=== PATIENT | male | born 1945 | race Caucasian/White ===

== ENCOUNTER 2017-01-09 07:16 | Day surgery (SDC) | payer MEDICARE ==
[2017-01-06 18:48] VITALS: BMI 25.4
[2017-01-09] MEDS ORDERED: LEVOFLOXACIN 500 MG IVPB 100 ML IVPB ONE (07:41)
[2017-01-09] MEDS ORDERED: PROPOFOL 20 ML ONE (09:17)
[2017-01-09] MEDS ORDERED: LEVOFLOXACIN 500 MG PREMIX BAG IVPB ONE (09:36)
--- NOTE | 2017-01-09 09:53 | OP ---
Operative Note - Note: Operative Date: 01/09/17 Pre-Operative Diagnosis: stress urinary incontinence Operation: cystoscopy/transurethral injection of collagen Implants: 2 cc coaptite collagen Post-Operative Diagnosis: Same as Pre-op Surgeon: Dwight Garcia Anesthesia: General Operative Report Dictated: Yes
[2017-01-09] MEDS ORDERED: ONDANSETRON 4 MG/2 ML VIAL IVPUSH PRN (10:20)
[2017-01-09] MEDS ORDERED: oxyCODONE HCL 5 MG TABLET PO PRN ×2 (10:20)
[2017-01-09] MEDS ORDERED: LACTATED RINGERS SOLUTION 1,000 ML IV SCH (10:30)
--- NOTE | 2017-01-09 11:08 | OP ---
DATE OF OPERATION: 01/09/2017 PREOPERATIVE DIAGNOSIS: Stress urinary incontinence. POSTOPERATIVE DIAGNOSIS: Stress urinary incontinence. PROCEDURE: Cystoscopy and transurethral injection of collagen. SURGEON: Perry Toribio MD ANESTHESIA: General. DESCRIPTION OF PROCEDURE: The patient was brought in the operating room and placed in the supine position on the operating room table. General anesthesia was administered without complications. The patient was also given Levaquin 500 mg preoperatively for surgical prophylaxis. The patient subsequently was placed in the dorsal lithotomy position and prepped and draped in the usual sterile manner. The patient has a history of prostate cancer and is status post radiation therapy. The patient has had recurrent urethral stricture disease at the level of the bulbous urethra. Urethral sphincter mechanism was noted to have failure of coaptation secondary to scar tissue and radiation therapy. The patient has undergone the collagen injection at the area of the membranous urethra for correction of urinary incontinence. Cystoscopy was performed, and there was no evidence of neoplasm within the bladder. There is also no evidence of recurrent urethral stricture disease. Coaptite is injected into the area of the membranous urethra with excellent coaptation of the urethra. Then 2 mL of Coaptite is utilized. The patient was instructed that there is a risk of urinary retention or continued incontinence after the procedure. The patient understood these risks and benefits. The patient tolerated the procedure very well. No complications were noted. The disposition of the patient was to the recovery room. PERRY TORIBIO M.D. /[id number]
[2017-01-09 12:18] VITALS: BP 108/57; PULSE 67; TEMP 97.4
== END 2017-01-09 11:45 | disposition home or self-care (01) ==
LOC: JASU-SURG 07:16
PROVIDERS: ATTEND Urology
PROC: 3E0K8GC Introduction of Other Therapeutic Substance into Genitourinary Tract, Via Natural or Artificial Opening Endoscopic (ICD-10-PCS; principal; 2017-01-09 08:00)
DX: N39.3 Stress incontinence (female) (male) (principal); Z85.46 Personal history of malignant neoplasm of prostate
CPT/HCPCS: 94760

== ENCOUNTER 2017-03-01 13:22 | Emergency (ER) | payer MEDICARE, OTHER ==
[2017-03-01 13:27] VITALS: BP 135/61; PULSE 88; TEMP 98; BMI 25.4
[2017-03-01] MEDS ORDERED: KETOROLAC TROMETHAMINE 60 MG/2 ML VIAL IM ONE (14:50)
[2017-03-01] MEDS ORDERED: KETOROLAC TROMETHAMINE 60 MG/2 ML VIAL ONE (14:57)
--- NOTE | 2017-03-01 14:57 | PDOC ---
History of Present Illness - General Chief Complaint: Injury Stated Complaint: ELEVATED BP, SWOLLEN LT ANKLE Time Seen by Provider: 03/01/17 14:00 History Source: Patient, Family Exam Limitations: No Limitations - History of Present Illness Initial Comments: 03/01/17 15:02 This morning when he woke up and noted swelling, redness, and tenderness to the lateral aspect of his left ankle. Denies any recent trauma, strenuous activity or heavy lifting. States has had same type of swelling and erythema some months ago. And is uncertain as any associated exacerbate. Patient also denies history of gout or knowledge of same. Denies any recent large meal seafood, meats, chocolates, and is not a drinker. Has taken no medication for relief Occurred: reports: yesterday Severity: reports: mild, moderate Pain Location: reports: lower extremity (left ankle ) Modifying Factors: improves with: None Loss of Consciousness: no loss of consciousness Associated Symptoms (Fall): denies symptoms Past History - Travel Traveled outside of the country in the last 30 days: No Close contact w/someone who was outside of country & ill: No - Past Medical History Allergies/Adverse Reactions: Allergies Allergy/AdvReac Type Severity Reaction Status Date / Time No Known Allergies Allergy Verified 03/01/17 13:27 Home Medications: Ambulatory Orders Metformin HCl [Glucophage] 1,000 mg PO BID 05/14/13 Sitagliptin Phosphate [Januvia] 100 mg PO DAILY 05/14/13 Canagliflozin [Invokana] 300 mg PO DAILY 01/06/17 Naproxen [Naprosyn -] 500 mg PO BID #30 tablet 03/01/17 Anemia: No Asthma: No Cancer: Yes (PROSTATE.) Cardiac Disorders: No CVA: No COPD: No CHF: No Dementia: No Diabetes: Yes GI Disorders: Yes Disorders: Yes (BPH, GENITAL POLYPS REMOVED) HTN: No Hypercholesterolemia: No Liver Disease: No Seizures: No Thyroid Disease: No - Surgical History Abdominal Surgery: No Appendectomy: No Cardiac Surgery: No Cholecystectomy: No Lung Surgery: No Neurologic Surgery: No Orthopedic Surgery: No - Psycho/Social/Smoking Cessation Hx Anxiety: No Suicidal Ideation: No Smoking History: Never smoked Have you smoked in the past 12 months: No If you are a former smoker, when did you quit?: 1999 Hx Alcohol Use: No Drug/Substance Use Hx: No Substance Use Type: None Hx Substance Use Treatment: No Trauma Specific PMHX - Complaint Specific PMHX Back Injury: No Neck Injury: No Review of Systems - Review of Systems Able to Perform ROS?: Yes Is the patient limited Maltese proficient: Yes Constitutional: Yes: See HPI. No: Symptoms Reported, Chills, Fever, Loss of Appetite HEENTM: No: Symptoms Reported Respiratory: Yes: See HPI. No: Symptoms reported, Cough ABD/GI: No: Symptoms Reported Musculoskeletal: Yes: Symptoms Reported, See HPI, Joint Pain, Joint Swelling, Joint Stiffness (left ankle ) Integumentary: Yes: Symptoms Reported, See HPI Neurological: Yes: Symptoms reported All Other Systems: Reviewed and Negative *Physical Exam - Vital Signs Last Vital Signs Temp Pulse Resp BP Pulse Ox 98.0 F 88 18 135/61 98 03/01/17 13:24 03/01/17 13:24 03/01/17 13:24 03/01/17 13:24 03/01/17 13:24 - Physical Exam General Appearance: Yes: Appropriately Dressed, Apparent Distress HEENT: positive: BIPIN, Normal ENT Inspection, TMs Normal, Pharynx Normal, Tonsillar Erythema, Nasal Congestion, Rhinorrhea Neck: positive: Tender, Supple, Lymphadenopathy (R), Lymphadenopathy (L) Respiratory/Chest: positive: Lungs Clear, Normal Breath Sounds Gastrointestinal/Abdominal: positive: Soft. negative: Normal Bowel Sounds Extremity: positive: Normal Capillary Refill, Normal Range of Motion (but tender with ROM). negative: Delayed Capillary Refill, Swelling, Calf Tenderness Integumentary: positive: Normal Color, Warm, Erythema Neurologic: positive: fourth hand II-XII NML intact, Fully Oriented, Alert, Normal Mood/ Affect, Motor Strength 5/5 *DC/Admit/Observation/Transfer Diagnosis at time of Disposition: Gout flare Qualifiers: Gout site: ankle Gout etiology: unspecified cause Laterality: left Qualified Code(s): M10.9 - Gout, unspecified - Discharge Dispostion Disposition: HOME Condition at time of disposition: Stable Admit: No - Prescriptions Prescriptions: Naproxen [Naprosyn -] 500 mg PO BID #30 tablet - Referrals Referrals: Marcelino Vaughn MD [Primary Care Provider] - Xavier Laird MD [Staff Physician] - - Patient Instructions Printed Discharge Instructions: DI for Gout Additional Instructions: Rest, ice to area on and off for 15 minutes 4-6 times a day Avoid heavy lifting or exercise until pain and swelling is resolved or until further directed Keep area highly elevated to reduce swelling Use s Silvano wrap as directed Followup with orthopedist in one to 2 days if not improving, if significantly improved may wait one week for followup with orthopedist May use Naprosyn 1- 500 mg tablet every 8 hours as needed for swelling and pain - Post Discharge Activity
== END 2017-03-01 15:40 | disposition home or self-care (01) ==
LOC: JERFT 13:22
PROC: 3E0233Z Introduction of Anti-inflammatory into Muscle, Percutaneous Approach (ICD-10-PCS; principal; 2017-03-01)
DX: M10.9 Gout, unspecified (principal); Z85.46 Personal history of malignant neoplasm of prostate; N40.0 Benign prostatic hyperplasia without lower urinary tract symptoms; Z87.891 Personal history of nicotine dependence; E11.9 Type 2 diabetes mellitus without complications
CPT/HCPCS: 73610-TC-LT; 96372; 99281-25

== ENCOUNTER 2018-06-23 15:52 | Inpatient (IN) | payer MEDICARE, OTHER ==
--- NOTE | 2018-06-23 17:35 | PDOC ---
History of Present Illness - General Chief Complaint: Urinary Problem Stated Complaint: URINARY PROBLEM Time Seen by Provider: 06/23/18 17:06 History Source: Patient, Family (Son present for interview.), Old Records Exam Limitations: Language Barrier (Pt predominantly nepali speaking. Requested son provide translation.) - History of Present Illness Initial Comments: 72 y/o male presenting to [facility] ER via private auto complaining of hematuria with clots since approx. 10 am this morning (23 Jun 2018). States he believes he is urinating a normal amount but that it feels tight and like he is passing small balls. Additionally endorses small amount of pain in the right lower quadrant that does not radiate to his groin or to his back. Does not believe the pain is associated with voiding. Denies penile discharge. Pt endorses a history of prostate cancer and is s/p radiation therapy. Follows regularly with Dr. Garcia. Was told everything was normal during last clinical encounter. Per [facility], pt was diagnosed with stress urinary incontinence and is s/p cystoscopy and transurethral injection of collagen by Dr. Garcia on 01/09/2017. PCP: Dr. Vaughn Urologist: Dr. Garcia Social Hx: - EtOH: Social, rare - Tobacco: former smoker, last cigarette 8 years ago - Street drugs: denies Medical Hx: - Diabetes - Prostate Cancer s/p radiation therapy, 8-9 years ago - Stress Incontinence Surgical Hx: - Transurethral injection of collagen Past History - Past Medical History Allergies/Adverse Reactions: Allergies Allergy/AdvReac Type Severity Reaction Status Date / Time peach Allergy Intermediate Swelling Verified 06/23/18 16:01 No Known Drug Allergies Allergy Verified 06/23/18 16:01 Home Medications: Ambulatory Orders metFORMIN HCL [Glucophage] 1,000 mg PO BID 05/14/13 Canagliflozin [Invokana] 300 mg PO DAILY 01/06/17 Dulaglutide [Trulicity] 1.5 mg SQ WEEKLY 06/23/18 Glipizide 5 mg PO TID 06/23/18 Anemia: No Asthma: No Cancer: Yes (PROSTATE) Cardiac Disorders: No CVA: No COPD: No CHF: No Dementia: No Diabetes: Yes GI Disorders: Yes Disorders: Yes (BPH, GENITAL POLYPS REMOVED) HTN: No Hypercholesterolemia: No Liver Disease: No Seizures: No Thyroid Disease: No - Surgical History Abdominal Surgery: No Appendectomy: No Cardiac Surgery: No Cholecystectomy: Yes (YEARS AGO) Lung Surgery: No Neurologic Surgery: No Orthopedic Surgery: No - Suicide/Smoking/Psychosocial Hx Smoking History: Never smoked Have you smoked in the past 12 months: No If you are a former smoker, when did you quit?: 1999 Hx Alcohol Use: No Drug/Substance Use Hx: No Substance Use Type: None Hx Substance Use Treatment: No Review of Systems - Review of Systems Able to Perform ROS?: Yes Comments:: In addition to that documented in the HPI above, the additional ROS was obtained : Constitutional: Denies fevers or chills Eyes: Denies vision changes ENMT: Denies sore throat CV: Denies chest pain Resp: Denies SOB GI: Denies vomiting or diarrhea *Physical Exam - Vital Signs Last Vital Signs Temp Pulse Resp BP Pulse Ox 98.1 F 84 18 129/65 99 06/23/18 15:58 06/23/18 15:58 06/23/18 15:58 06/23/18 15:58 06/23/18 15:58 - Physical Exam Comments: Constitutional: Well-developed, well-nourished male in no acute distress or obvious discomfort. Found sitting upright on edge of hospital bed. . Alert and oriented x4. Answered all questions appropriately and completely. Speech was non -labored, non-pressured. HEENT: Normocephalic. No obvious external signs of trauma. Hearing grossly normal. No nasal discharge. Moist, pink mucosal membranes. Neck is supple. Cardiovascular: Regular rate and regular rhythm. No murmur, rubs, clicks, or gallops. Peripheral pulses: Radial pulses full. Respiratory: Breathing unlabored. Equal chest rise and fall. Clear to auscultation bilaterally. No stridor, no wheezing, no rhonchi. Gastrointestinal: abdomen is soft, non-tender, non-distended. Neuro: Alert and oriented. Moving all four extremities spontaneously. Skin: Sneads, warm, dry, and intact. No bruising, rashes, or other lesions. : No R or L CVA tenderness. Psych: Affect: appropriate. Mood: normal. ED Treatment Course - LABORATORY CBC & Chemistry Diagram: 06/23/18 17:40 06/23/18 17:40 - RADIOLOGY Radiograph Interpretation: Ultrasound of Bladder and Pelvis Hong Vale MD wrote on Jun 23, 2018 at 07:58 PM: Referring Physician: BISHOP LLANOS Patient Name: EMI JHAVERI THIS IS A PRELIMINARY REPORT FROM [facility] DATE OF SERVICE: 2018-06-23 19:10:15 IMAGES: 17 EXAM: PELVIC / BLADDER US HISTORY: Hematuria COMPARISON: None available. FINDINGS: Distended bladder with echogenic mobile debris, but no obvious mass. The prevoid volume of the urinary bladder is 1000 ml, and the patient was not able to void. THIS DOCUMENT HAS BEEN ELECTRONICALLY SIGNED Hong Vale MD 06/23/2018 19:57 EST Medical Decision Making - Medical Decision Making *Reviewed vital signs, nursing notes, and prior visit documentation (if available). 72 y/o male with hematuria with clots. H/o bladder instrumentation and prostate CA. Pt not on ASA or anticoagulants. Afebrile. Vitals unremarkable for hypotension or tachycardia. Physical exam unrevealing for signs of anemia. Urine sample at bedside appeared grossly hematuric with obvious clots. D/D includes hematuria and clots causing urinary stricture, bladder CA, prostate CA , cystitis, pyelonephritis. Will obtain CBC, BMP, PT/INR, and bladder U/S. Anticipate placing emanuel for CBI. Bladder U/S revealed 20:13 Telephone page sent to Dr. Garcia. 20:48 Second telephone page sent to Dr. Garcia. 21:[address] Garcia. Expressed concern for hemorrhagic cystitis. Requested the pt be start on antibiotics. 21:59 Microblog sent to [facility] for admission for hematuria, concerning for hemorrhagic cystitis. Ordered Ceftriaxone presumptively. UA positive for nitrite and trace leukocyte esterase. No pyuria. 06/24/18 00:42 In person consultation with resident Dr. Liz. Agrees to admit pt to med/surg on obs status for Dr. Jacobsen. *DC/Admit/Observation/Transfer Diagnosis at time of Disposition: Hematuria Qualifiers: Hematuria type: unspecified type Qualified Code(s): R31.9 - Hematuria, unspecified - Discharge Dispostion Condition at time of disposition: Good Decision to Admit order: Yes - Referrals Referrals: Marcelino Vaughn MD [Primary Care Provider] - - Patient Instructions - Post Discharge Activity
--- NOTE | 2018-06-23 18:44 | PDOC ---
Attending Attestation - Resident Resident Name: Héctor Alvarado - ED Attending Attestation I have performed the following: I have examined & evaluated the patient, The case was reviewed & discussed with the resident, I agree w/resident's findings & plan, Exceptions are as noted - HPI HPI: 06/23/18 18:38 The patient is a 72-year-old male with past medical history significant for DM ( well controlled), prostate CA, BPH, colon CA with radiation therapy and hx of hematuria presents to the emergency department with hematuria since 10:00 am today. The patient reports since this morning hes been passing bright red blood per urine thats accompanied by the passing of clots. He states his urine is mostly bright red. The patient states hes able to void without difficulty, but he has been passing clots thats the size of balls while urinating. The patient reports hematuria in the past about 7-8 months ago, denies passing clots during that time. The patient is s/p cystoscopy/transurethral injection of collagen (01/09/17) secondary to stress urinary incontinence. Denies dysuria , frequency or urgency to urinate, fever, chills, chest pain, shortness of breath, abdominal pain or changes in bowel habits. Denies the use of blood thinners or AC. Allergies: NKDA Social history: Former smoker, no alcohol or recreational drug use reported. Surgical history: cystoscopy/transurethral injection of collagen (01/09/[address] Garcia), right knee arthroscopy with PMM, PLM, debridement chondroplasty (05/23/[address] Waggoner), Cholecystectomy. PCP: Marcelino Sparks MD Urologist: Dr. Garcia. - Physicial Exam PE: 06/23/18 18:40 agree with resident exam - Medical Decision Making 06/23/18 18:21 72yo M presents to the ED with hematuria with clots. Vitals unremarkable. Exam with some suprapubic ttp. PT able to void, but mostly blood. Plan to obtain labs , US, and discuss case with Dr. Nice. 06/23/18 19:10 Labs, US, uro consult pending Case signed out to overnight attending for further mgmt and dispo
[2018-06-23 18:49] LABS: BASO % 1.2 % (0-2.0); EOS % 0.5 % (0-4.5); HEMATOCRIT 37.3 % (35.4-49); HEMOGLOBIN 12.7 GM/dL (11.7-16.9); LYMPH % 30.6 % (8-40); MCH 29.7 pg (25.7-33.7); MEAN CELL VOLUME 87.5 fl (80-96); MEAN PLT VOLUME 8.2 fl (7.5-11.1); MONO % 7.7 % (3.8-10.2); PLATELET COUNT 178 K/MM3 (134-434); RBC 4.26 M/mm3 (4.00-5.60); RDW 14.4 % (11.9-15.9); WHITE BLOOD COUNT 7.1 K/mm3 (4.0-10.0)
[2018-06-23 19:00] LABS: INR 1.03 (0.83-1.09); PROTHROMBIN TIME (PATIENT) 12.1 SEC (9.7-13.0)
[2018-06-23 19:07] LABS: ANION GAP 9 MMOL/L (8-16); BLOOD UREA NITROGEN 15 mg/dL (7-18); CALCIUM 8.5 mg/dL (8.5-10.1); CHLORIDE 98 mmol/L (98-107); CO2 27 mmol/L (21-32); CREATININE 0.9 mg/dL (0.55-1.3); GLUCOSE,RANDOM 299 mg/dL (74-106); POTASSIUM 4.7 mmol/L (3.5-5.1); SODIUM 134 mmol/L (136-145)
[2018-06-23] MEDS ORDERED: CEFTRIAXONE 1,000 MG in DEXTROSE 5%-WATER - 50 ML IVPB ONE (22:21)
[2018-06-23] MEDS ORDERED: CEFTRIAXONE 1 GM/50 ML BAG ONE (22:23)
[2018-06-23 22:44] LABS: URINE APPEARANCE Turbid; URINE BILIRUBIN 2+ (<2.0 mg/dL); URINE COLOR Red; URINE GLUCOSE (UA) 2+ (NEGATIVE); URINE KETONE Negative (NEGATIVE); URINE LEUK ESTERASE TRACE (NEGATIVE); URINE NITRITE Positive (NEGATIVE); URINE PROTEIN 3+ (NEGATIVE); URINE UROBILINOGEN 0.2 mg/dL (0.2-1.0)
[2018-06-23 22:51] LABS: URINE BACTERIA 1+ /hpf (NONE SEEN)
--- NOTE | 2018-06-24 01:54 | HP ---
CHIEF COMPLAINT: Hematuria PCP: Dr. Vaughn HISTORY OF PRESENT ILLNESS: Pt. is a citizen of [place] speaking male who presents with hematuria that began this morning. Pt. states that there he awoke early i nthe morning and was urinating as usual and then spontaneously around 10 am, he began passing red urine with clots. He denies any traumatic inciting incident. He denies eating beets, he denies taking Rifaximin. Pt. states that urination is not painful and is not more frequent than usual. Pt. denies any other complaints at this time including 10 point ROS ER course was notable for: (1)Labs (2)Bladder US (3)Urology Consult Recent Travel: No PAST MEDICAL HISTORY: NIDDM, Prostate Ca( s/p radiation therapy 2009), BPH, Hematuria PAST SURGICAL HISTORY: Cystoscopy/transurethral collagen injection (01/09/17)- Luiz Martin knee arthroscopy, partial medial and lateral menisecotomies ()-Dr. Waggoner CCEsperanza, Social History: Smoking:former occasional smoker(a few cigarettes/ day), quit 6-7 years ago Alcohol: Social Drinking Drugs: Denies Family History: Brother-Colon cancer (70), Mom-Diabetes (66) Allergies peach Allergy (Intermediate, Verified 06/23/18 16:01) Swelling No Known Drug Allergies Allergy (Verified 06/23/18 16:01) HOME MEDICATIONS: Home Medications Medication Instructions Recorded metFORMIN HCL [Glucophage] 1,000 mg PO BID 05/14/13 Canagliflozin [Invokana] 300 mg PO DAILY 01/06/17 Dulaglutide [Trulicity] 1.5 mg SQ WEEKLY 06/23/18 Glipizide 5 mg PO TID 06/23/18 REVIEW OF SYSTEMS CONSTITUTIONAL: Absent: fever, chills, diaphoresis, generalized weakness, malaise, loss of appetite, weight change HEENT: Absent: rhinorrhea, nasal congestion, throat pain, throat swelling, difficulty swallowing, mouth swelling, ear pain, eye pain, visual changes CARDIOVASCULAR: Absent: chest pain, syncope, palpitations, irregular heart rate, lightheadedness , peripheral edema RESPIRATORY: Absent: cough, shortness of breath, dyspnea with exertion, orthopnea, wheezing, stridor, hemoptysis GASTROINTESTINAL: Absent: abdominal pain, abdominal distension, nausea, vomiting, diarrhea, constipation, melena, hematochezia GENITOURINARY: Absent: dysuria, frequency, urgency, hesitancy, hematuria, flank pain, genital pain MUSCULOSKELETAL: Absent: myalgia, arthralgia, joint swelling, back pain, neck pain SKIN: Absent: rash, itching, pallor HEMATOLOGIC/IMMUNOLOGIC: Absent: easy bleeding, easy bruising, lymphadenopathy, frequent infections ENDOCRINE: Absent: unexplained weight gain, unexplained weight loss, heat intolerance, cold intolerance NEUROLOGIC: Absent: headache, focal weakness or paresthesias, dizziness, unsteady gait, seizure, mental status changes, bladder or bowel incontinence PSYCHIATRIC: Absent: anxiety, depression, suicidal or homicidal ideation, hallucinations. PHYSICAL EXAMINATION Vital Signs - 24 hr 06/23/18 15:58 Temperature 98.1 F Pulse Rate 84 Respiratory 18 Rate Blood Pressure 129/65 O2 Sat by Pulse 99 Oximetry (%) GENERAL: Awake, alert, and fully oriented, in no acute distress. HEAD: Normal with no signs of trauma. EYES: Pupils equal, round and reactive to light, sclera anicteric, conjunctiva clear. EARS, NOSE, THROAT: Ears normal, nares patent, oropharynx clear without exudates. Moist mucous membranes. LUNGS: Breath sounds equal, clear to auscultation bilaterally. No wheezes, and no crackles. No accessory muscle use. HEART: Regular rate and rhythm, normal S1 and S2 without murmur ABDOMEN: Soft, nontender, not distended, normoactive bowel sounds, no guarding, no rebound, no masses. No hepatomegaly or splenomegaly. MUSCULOSKELETAL: Normal range of motion at all joints. No bony deformities or tenderness. No CVA tenderness. UPPER EXTREMITIES: 2+ pulses, warm, well-perfused. No cyanosis. No clubbing. No peripheral edema. LOWER EXTREMITIES: 2+ pulses, warm, well-perfused. No calf tenderness. No peripheral edema. NEUROLOGICAL: Cranial nerves II-XII intact. Normal speech. Normal gait. PSYCHIATRIC: Cooperative. Good eye contact. Appropriate mood and affect. SKIN: Warm, dry, normal turgor, no rashes or lesions noted, normal capillary refill. Laboratory Results - last 24 hr 06/23/18 06/23/18 06/23/18 17:40 17:40 17:40 WBC 7.1 RBC 4.26 Hgb 12.7 Hct 37.3 MCV 87.5 MCH 29.7 MCHC 34.0 RDW 14.4 Plt Count 178 MPV 8.2 Absolute Neuts (auto) 4.2 Neutrophils % 60.0 Lymphocytes % 30.6 D Monocytes % 7.7 Eosinophils % 0.5 Basophils % 1.2 Nucleated RBC % 0 PT with INR INR Sodium 134 L Potassium 4.7 Chloride 98 Carbon Dioxide 27 Anion Gap 9 BUN 15 Creatinine 0.9 Creat Clearance w eGFR > 60 Random Glucose 299 H Calcium 8.5 Urine Color Urine Appearance Urine pH Ur Specific [place] Urine Protein Urine Glucose (UA) Urine Ketones Urine Blood Urine Nitrite Urine Bilirubin Urine Urobilinogen Ur Leukocyte Esterase Urine WBC (Auto) Urine RBC (Auto) Urine Bacteria Blood Type A POSITIVE Antibody Screen Negative 06/23/18 06/23/18 17:40 22:17 WBC RBC Hgb Hct MCV MCH MCHC RDW Plt Count MPV Absolute Neuts (auto) Neutrophils % Lymphocytes % Monocytes % Eosinophils % Basophils % Nucleated RBC % PT with INR 12.10 INR 1.03 Sodium Potassium Chloride Carbon Dioxide Anion Gap BUN Creatinine Creat Clearance w eGFR Random Glucose Calcium Urine Color Red Urine Appearance Turbid Urine pH 7.0 Ur Specific [place] 1.020 Urine Protein 3+ H Urine Glucose (UA) 2+ H Urine Ketones Negative Urine Blood 3+ H Urine Nitrite Positive Urine Bilirubin 2+ H Urine Urobilinogen 0.2 Ur Leukocyte Esterase Trace Urine WBC (Auto) 0-3 Urine RBC (Auto) >100 Urine Bacteria 1+ Blood Type Antibody Screen ASSESSMENT/PLAN: A 72 y.o. M w/ PMHx. of DM, Prostate Ca(received last dose of radiation therapy 8 years ago), and BPH presents to the ED with hematuria and passing clots. -Hematuria UA: 3+ positive for blood, RBC>100 Pt. endorses passing clots of blood that are worm like. s/p Prostate cancer and radiation therapy f/u consult with Dr. Dov Allen f/u official CT A/P reading to rule out Nephrolithiasis. Preliminary read is positive for bilater renal cysts, a small non-obstructing calcification on the right kidney, and bladder wall thickening vs. possible mass. F/u cystoscopy is recommended. monitor CBC with normal transfusion threshold of 7 -Hyperglycemia 2/2 DM2 B Anion gap is 9 therefore unlikely to be DKA, no ketones in the urine, BG lower than 600 and no neurological symptoms present therefore unlikely to be HHS ISS ACHS BGM ACHS -F/E/N IVF monitor electrolytes and replete as needed NPO for possible cystoscopy in AM -DVT Ppx. SCDs hold AC in light of ongoing hematuria Visit type - Emergency Visit Emergency Visit: Yes ED Registration Date: 06/24/18 Care time: The patient presented to the Emergency Department on the above date and was hospitalized for further evaluation of their emergent condition. - New Patient This patient is new to me today: Yes Date on this admission: 06/24/18 - Critical Care Critical Care patient: No
--- NOTE | 2018-06-24 02:12 | PN ---
Teaching Attending Note Name of Resident: Bright Espino ATTENDING PHYSICIAN STATEMENT I saw and evaluated the patient. I reviewed the resident's note and discussed the case with the resident. I agree with the resident's findings and plan as documented. SUBJECTIVE: Seen and examined; please refer to resident note for further documentation. He is a 72 y/o HM h/o prostate cancer, BPH, presenting to the ER with a CC of hematuria since 10AM the morning of the day of presentation. He has no other urinary sx including dysuria or frequency. He never had hematuria before. He is passing clots with this and was observed to do so at the hospital. Nothing makes these sx better or worse. He follows with Dr. Crook for urology who was consulted by the ER. Afebrile without a white count; UA is nondiscript for infection but shows blood, nitrite, etc but clinically doesn't appear infected. CT and bladder US done; thickened wall and recommendation to r/o bladder mass. Medicine was called for admission. Hemodynamics stable. 10 sys ROS done and negative aside from HPI PMH and PSH reviewed; as per chart. Would benefit from obtaining old records. Socially he denies any history of EtOH abuse. He is a former smoker who quit 7 years ago. FH asked and noncontributory OBJECTIVE: VS, labs, imaging reviewed NAD, AAO, resting comfortably in bed RRR s1/2 no mgr Lungs CTAB with sym exp NT ND +BS Bladder nondistended, making urine. Blood at urethral meatus CN2-12 wnl, no fnd Labs: CBC, BMP unremarkable. UA shows grossly bloody urine with nitrite + and only trace LE in the setting of asymptomatic individual with no fever or WBC count. Glucose elevated 250s. Imaging: Bladder Us reviewed; CT shows wall thickening with possible mass and blood in the bladder with the final report pending and recommended cystoscopy ASSESSMENT AND PLAN: Mr. Woo is a 72 y/o male presenting with hematuria; questionable bladder mass with wall thickening with borderline UTI but no fever and no WBC count. 1) Acute Hematuria -Dr. Crook consulted by ER; he will likely require cystoscopy. His H/H is stable. Ddx is broad but is of course concerning for malignancy. Prelim report reviewed of CT and radiology agrees; wall thickening with possible mass. -Obtain tissue sample inpt. vs. outpt. and will need close followup when the results are made available. -Monitor CBC 2) ?UTI -Was given ceftriaxone in ER for ?UTI. He is asymptomatic and without a white count or fever which argues against this; however he does have bladder wall thickening on his CT which could be seen with cystitis vs. issue #1. As he already recieved tx and culture is pending will monitor clinically. If he does spike any fevers or get a white count of course we will start treatment on this gentleman, but the bladder wall thickening and UA findings could be easily explained by possible malignancy as well and the clinical presentation does argue against a UTI. If he does require tx would have to tx for complicated UTI and likely could be done PO. 3) DM with hyperglycemia -He is documented as being on 4 home meds and has poor control as evidenced by his glucose. I believe that he needs to be evaluated for starting on long acting insulin as an outpatient given this information. Will confirm with pharmacy and check an A1c. -Hold PO medicatons, start SSI. 4) History of Prostate Cancer -Mention of colon cancer in the notes but patient denies. He is s/p radiation and the last tx was 8 years ago. 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
[2018-06-24 04:16] VITALS: BMI 27.1
[2018-06-24] MEDS: LACTATED RINGERS SOLUTION 1,000 ML/1,000 ML INFUS.BAG IV SCH (04:58)
[2018-06-24] MEDS: INSULIN SLIDING SCALE (NOVOLOG) 1 VIAL SQ SCH ×3 (06:33→17:36)
[2018-06-24 07:27] LABS: HEMATOCRIT 37.2 % (35.4-49); HEMOGLOBIN 12.3 GM/dL (11.7-16.9); MCHC 33.1 g/dl (32.0-35.9); MEAN CELL VOLUME 87.5 fl (80-96); MEAN PLT VOLUME 7.8 fl (7.5-11.1); PLATELET COUNT 156 K/MM3 (134-434); RBC 4.25 M/mm3 (4.00-5.60); RDW 13.9 % (11.9-15.9); WHITE BLOOD COUNT 6.4 K/mm3 (4.0-10.0)
[2018-06-24 08:07] LABS: ALBUMIN 3.4 g/dl (3.4-5.0); ALK PHOS 95 U/L (45-117); ANION GAP 6 MMOL/L (8-16); BILIRUBIN,TOTAL 0.7 mg/dL (0.2-1); BLOOD UREA NITROGEN 9 mg/dL (7-18); CHLORIDE 100 mmol/L (98-107); CO2 30 mmol/L (21-32); CREATININE 0.7 mg/dL (0.55-1.3); GLUCOSE,RANDOM 200 mg/dL (74-106); MAGNESIUM 2.1 mg/dL (1.8-2.4); PHOSPHOROUS 3.3 mg/dL (2.5-4.9); POTASSIUM 4.2 mmol/L (3.5-5.1); SGOT/AST 36 U/L (15-37); SGPT/ALT 40 U/L (13-61); SODIUM 135 mmol/L (136-145); TOT PROT 7.2 g/dl (6.4-8.2)
[2018-06-24 08:08] LABS: INR 1.11 (0.83-1.09); PROTHROMBIN TIME (PATIENT) 13.1 SEC (9.7-13.0)
--- NOTE | 2018-06-24 11:54 | HOSP ---
Subjective - Review of Symptoms Events since last encounter: pt seen and examined. has no abd pain, denies dysuria, has no SOB or CP . denies being on ASA or NSAIDs PE: NAD CV: RRR, 3/6 DM atapex . Lungs: CTAB Abd: sfot, Nt, Nd , NL BS Ext : nod philip : Nl hair distribution. no discharge form penis. blood on underwear A/P 72 y/o man with h/o DM and prostate cancer s/p radiation x 8 yrs ago , who presented with hematuria 1- Hematuria: ? source could be renal vs bladder vs prostate - CT reviewed, bladder hyperdensity . ? blood clots vs mass . R renal cyst - US reviewed . - monitor HB . - uro consult pending . ? cystoscopy - feed patient as no procedure is anticipated today - avoid heparin products - no signs of UTI . no Abx 2- DM : cont SSI hold po meds A1c 3- SCDS . ambulatory Physical Examination Vital Signs: Vital Signs Temperature 97.9 F 06/24/18 09:28 Pulse Rate 70 06/24/18 09:28 Respiratory Rate 20 06/24/18 09:28 Blood Pressure 129/63 06/24/18 09:28 O2 Sat by Pulse Oximetry (%) 98 06/24/18 10:04 Labs: CBC, BMP 06/24/18 06:00 06/24/18 06:00
[2018-06-24] MEDS ORDERED: INSULIN (NOVOLOG) ASPART 100 UNITS/ML 10ML VIAL ONE (17:58)
[2018-06-24 18:37] LABS: HEMATOCRIT 38.3 % (35.4-49); HEMOGLOBIN 12.8 GM/dL (11.7-16.9); MCH 29.4 pg (25.7-33.7); MCHC 33.5 g/dl (32.0-35.9); MEAN CELL VOLUME 87.8 fl (80-96); MEAN PLT VOLUME 8.2 fl (7.5-11.1); PLATELET COUNT 168 K/MM3 (134-434); RBC 4.36 M/mm3 (4.00-5.60); RDW 14.2 % (11.9-15.9); WHITE BLOOD COUNT 6.6 K/mm3 (4.0-10.0)
[2018-06-25] MEDS: LACTATED RINGERS SOLUTION 1,000 ML/1,000 ML INFUS.BAG IV SCH (06:31)
[2018-06-25] MEDS: INSULIN SLIDING SCALE (NOVOLOG) 1 VIAL SQ SCH ×2 (06:49→12:30)
[2018-06-25 06:51] LABS: BASO % 0.7 % (0-2.0); EOS % 3.2 % (0-4.5); HEMATOCRIT 36.3 % (35.4-49); LYMPH % 36.5 % (8-40); MCH 29.1 pg (25.7-33.7); MCHC 33.1 g/dl (32.0-35.9); MEAN CELL VOLUME 87.8 fl (80-96); MEAN PLT VOLUME 7.5 fl (7.5-11.1); MONO % 9.1 % (3.8-10.2); NEUT % 50.5 % (42.8-82.8); PLATELET COUNT 139 K/MM3 (134-434); RBC 4.14 M/mm3 (4.00-5.60); RDW 14.1 % (11.9-15.9); WHITE BLOOD COUNT 4.6 K/mm3 (4.0-10.0)
[2018-06-25] MEDS ORDERED: DOCUSATE NA 100 MG/10 ML UNIT-DOSE CUPS PO ONE (08:15)
--- NOTE | 2018-06-25 09:47 | PN ---
Teaching Attending Note Name of Resident: Dorothy Tinoco ATTENDING PHYSICIAN STATEMENT I saw and evaluated the patient. I reviewed the resident's note and discussed the case with the resident. I agree with the resident's findings and plan as documented. SUBJECTIVE: no pain, no fever or chills, cont to have hematuria but improved . OBJECTIVE: NAD CV: RRR, 3/6 DM at apex . Lungs: CTAB Abd: soft, NT, Nd , NL BS Ext : no edema : Nl hair distribution. no discharge form penis. old blood on underwear A/P 72 y/o man with h/o DM and prostate cancer s/p radiation x 8 yrs ago , who presented with hematuria 1- Hematuria: ? source could be renal vs bladder vs prostate - monitor HB . - uro consult is still pending . ? cystoscopy - avoid heparin products - no signs of UTI . no Abx 2- DM : cont SSI hold po meds A1c : 9 . Ok to cont po regimen 3- SCDS . ambulatory
--- NOTE | 2018-06-25 10:36 | CON.GU ---
Consult Consult Specialty:: urology Reason for Consultation:: gross hematuria - History of Present Illness Chief Complaint: uti/gross hematuria History of Present Illness: Patient is a 72 year old male with history of CAP s/p RT with recurrent urethral stricture disease. Patient has had a cystoscopy in the last 3 months which confirms no bladder tumor. Patient report increased urinary frequcny and urgency with passage of clots. Patient currently with light hematuria. Denies nausea, vomiting,fever, or chills - History Source History Provided By: Patient Limitations to Obtaining History: No Limitations - Alcohol/Substance Use Hx Alcohol Use: No - Smoking History Smoking history: Never smoked Have you smoked in the past 12 months: No If you are a former smoker, when did you quit?: 1999 Home Medications - Allergies Allergies/Adverse Reactions: Allergies Allergy/AdvReac Type Severity Reaction Status Date / Time peach Allergy Intermediate Swelling Verified 06/23/18 16:01 No Known Drug Allergies Allergy Verified 06/23/18 16:01 - Home Medications Home Medications: Ambulatory Orders metFORMIN HCL [Glucophage] 1,000 mg PO BID 05/14/13 Canagliflozin [Invokana] 300 mg PO DAILY 01/06/17 Dulaglutide [Trulicity] 1.5 mg SQ WEEKLY 06/23/18 Glipizide 5 mg PO TID 06/23/18 Physical Exam- Vital Signs: Vital Signs Temperature 97.9 F 06/25/18 06:25 Pulse Rate 90 06/25/18 06:25 Respiratory Rate 20 06/25/18 06:25 Blood Pressure 114/69 06/25/18 06:25 O2 Sat by Pulse Oximetry (%) 98 06/24/18 21:00 Constitutional: Yes: Well Nourished, No Distress, Calm Eyes: Yes: WNL, Conjunctiva Clear, EOM Intact HENT: Yes: WNL, Atraumatic, Normocephalic, Tonsillar Exudate Neck: Yes: WNL, Supple Cardiovascular: Yes: WNL, Regular Rate and Rhythm Respiratory: Yes: WNL, Regular, CTA Bilaterally Gastrointestinal: Yes: WNL, Normal Bowel Sounds, Soft Renal/: Yes: WNL, Urethral Discharge Kidneys: Yes: Flank Pain Left Pelvis: Yes: WNL, Bladder Non Palpable Testicles: Yes: WNL Scrotum: Yes: WNL Penis: Yes: WNL Prostate Exam: Yes: Firm Musculoskeletal: Yes: WNL Extremities: Yes: WNL Labs: CBC, BMP 06/25/18 06:23 06/24/18 06:00 Imaging - Results Cat Scan: Report Reviewed Assessment/Plan imp hemorrhagic cystitis renal stone renal cyst CAP s/p RT imp urologically cleared for d/c home on PO antibiotics; would recommend macrobid 100mg bid x 7 days will follow up in office
[2018-06-25] MEDS ORDERED: INSULIN (NOVOLOG) ASPART 100 UNITS/ML 10ML VIAL ONE (12:28)
--- NOTE | 2018-06-25 13:36 | DS ---
Physical Exam: SUBJECTIVE: Patient seen and examined. No acute events overnight. OBJECTIVE: Vital Signs Period Temp Pulse Resp BP Sys/Vale Pulse Ox Last 24 Hr 97.3 F-97.9 F 73-90 20-20 114-154/69-85 98 PHYSICAL EXAM GENERAL: The patient is awake, alert, and fully oriented, in no acute distress. HEAD: Normal with no signs of trauma. EYES: Sclera anicteric, conjunctiva clear. ENT: Ears normal, nares patent, oropharynx clear without exudates, moist mucous membranes. LUNGS: diffuse fine crackles more prominent at bases, no wheezing no accessory muscle use. HEART: Regular rate and rhythm, S1, S2 without murmur ABDOMEN: Soft, nontender, nondistended, normoactive bowel sounds, no guarding, no rebound, tympanic to percussion. EXTREMITIES: 2+ dorsal pedal pulses, warm, no calf tenderness, well-perfused, no edema. PSYCH: Normal mood, normal affect. SKIN: Warm, dry, normal turgor : old blood in urine, penis non-tender, no observable lesions LABS Laboratory Results - last 24 hr 06/24/18 06/24/18 06/24/18 06:00 17:55 22:42 WBC 6.6 RBC 4.36 Hgb 12.8 Hct 38.3 MCV 87.8 MCH 29.4 MCHC 33.5 RDW 14.2 Plt Count 168 MPV 8.2 Absolute Neuts (auto) Neutrophils % Lymphocytes % Monocytes % Eosinophils % Basophils % Nucleated RBC % POC Glucometer 182 Hemoglobin A1c % 9.0 H 06/25/18 06/25/18 06/25/18 06:23 06:28 12:20 WBC 4.6 RBC 4.14 Hgb 12.0 Hct 36.3 MCV 87.8 MCH 29.1 MCHC 33.1 RDW 14.1 Plt Count 139 MPV 7.5 Absolute Neuts (auto) 2.3 Neutrophils % 50.5 Lymphocytes % 36.5 Monocytes % 9.1 Eosinophils % 3.2 D Basophils % 0.7 Nucleated RBC % 0 POC Glucometer 219 290 Hemoglobin A1c % HOSPITAL COURSE: Date of Admission:06/24/18 Date of Discharge: 06/25/18 Pt. presented for hematuria with clots that began spontaneously yesterday. Pt. denied any UTI symptoms including fever or chills and had an ambiguous UA. CBC showed a stable hemoglobin. Pt. is a Pt. of Dr. Garcia who was consulted and advised to not perform a cystoscopy. CT abdomen and Pelvis positive for bilateral renal cysts, small non-obstructing calcification on right kidney and bladder wall thickening vs. possible mass. Pt will have outpatient cystoscopy as detailed below with Dr. Garcia. Pt. discharged on 7 day course of Macrobid as detailed below. hospital course discussed and agreed upon with Pt. and medical staff. Minutes to complete discharge: 32 Discharge Summary Reason For Visit: HEMATURIA Current Active Problems Diabetes mellitus (Chronic) Condition: Improved - Instructions Diet, Activity, Other Instructions: Your Hospital visit You were in the hospital because you were passing blood clots in your urine. You were found to have a urinary tract infection and were treated with antibiotics. Medications We are sending you home on the following antibiotic. Please take it as follows: -Macrobid 100mg (1 pill) twice a day, for the next 7 days. You will start your first dose tomorrow, on 06/26/18. -you may continue your other home medications. Appointments -You will need to follow up with your urologist, Dr. Garcia. An appointment has been scheduled for you for tomorrow, 06/26/18 at 2pm. -Please also follow up with your primary care doctor, this week. Further instructions -If you notice increased blood in your urine, abdominal pain, dizziness, or develop a fever, please call Dr. Garcia immediately. -If you develop shortness of breath, or chest pain or feel as if you will pass out, please go to the hospital immediately. We hope you feel better soon. Referrals: Marcelino Vaughn MD [Primary Care Provider] - 1 Week Dwight Garcia MD [Staff Physician] - 06/26/18 2:00 pm Disposition: HOME - Home Medications Comprehensive Discharge Medication List: Ambulatory Orders metFORMIN HCL [Glucophage] 1,000 mg PO BID 05/14/13 Canagliflozin [Invokana] 300 mg PO DAILY 01/06/17 Dulaglutide [Trulicity] 1.5 mg SQ WEEKLY 06/23/18 Glipizide 5 mg PO TID 06/23/18 Nitrofurantoin Monohyd/M-Cryst [Macrobid -] 100 mg PO BID #14 capsule 06/25/18 This patient is new to me today: No Emergency Visit: Yes ED Registration Date: 06/24/18 Care time: The patient presented to the Emergency Department on the above date and was hospitalized for further evaluation of their emergent condition. Critical Care patient: No - Discharge Referral Referred to [facility] No
[2018-06-25 14:50] VITALS: BP 119/65; PULSE 79; TEMP 98.4
== END 2018-06-25 15:50 | disposition home or self-care (01) | DRG 690 ==
LOC: JER 15:52 → JERBED 21:59 → OBSVTOIN 06-24 01:13 → J5S 06-24 03:11
PROVIDERS: ADMIT Internal Medicine; ATTEND Internal Medicine
DX: N30.91 Cystitis, unspecified with hematuria (principal); B95.2 Enterococcus as the cause of diseases classified elsewhere; N39.3 Stress incontinence (female) (male); N40.0 Benign prostatic hyperplasia without lower urinary tract symptoms; E11.65 Type 2 diabetes mellitus with hyperglycemia; N20.0 Calculus of kidney; N39.0 Urinary tract infection, site not specified; E66.3 Overweight; Z68.27 Body mass index [BMI] 27.0-27.9, adult; N28.1 Cyst of kidney, acquired; Z85.46 Personal history of malignant neoplasm of prostate
CPT/HCPCS: 36415; 74178-TC; 76856-TC; 80048; 80053; 81003; 81015; 82962; 83036; 83735; 84100; 85025; 85027; 85610; 86850; 86900; 86901; 87086; 87186; 99285-25; G0378

== ENCOUNTER 2018-07-24 11:28 | Emergency (ER) | payer MEDICARE, OTHER ==
[2018-07-24 11:55] VITALS: BP 127/60; PULSE 77; TEMP 97.8; BMI 26.9
--- NOTE | 2018-07-24 13:13 | PDOC ---
History of Present Illness - General Chief Complaint: Urinary Problem Stated Complaint: URINARY PROBLEM Time Seen by Provider: 07/24/18 12:02 History Source: Patient Exam Limitations: No Limitations - History of Present Illness Initial Comments: 07/24/18 13:10 72 yo M with h/o previous hematuria, here today with c/o hematuria. has had since last night. no difficulty with urination, no dysuria. no f/c no flank pain. has had infections recently. no lightheaded. no other complaints. follows with urologist dr. Ledbetter, and Dr Vaughn. Past History - Past Medical History Allergies/Adverse Reactions: Allergies Allergy/AdvReac Type Severity Reaction Status Date / Time peach Allergy Intermediate Swelling Verified 07/24/18 11:55 No Known Drug Allergies Allergy Verified 07/24/18 11:55 Home Medications: Ambulatory Orders metFORMIN HCL [Glucophage] 1,000 mg PO BID 05/14/13 Canagliflozin [Invokana] 300 mg PO DAILY 01/06/17 Dulaglutide [Trulicity] 1.5 mg SQ WEEKLY 06/23/18 Glipizide 5 mg PO TID 06/23/18 Anemia: No Asthma: No Cancer: Yes (PROSTATE) Cardiac Disorders: No CVA: No COPD: No CHF: No Dementia: No Diabetes: Yes GI Disorders: Yes Disorders: Yes (BPH, GENITAL POLYPS REMOVED) HTN: No Hypercholesterolemia: No Kidney Stones: Yes Liver Disease: No Seizures: No Thyroid Disease: No - Surgical History Abdominal Surgery: No Appendectomy: No Cardiac Surgery: No Cholecystectomy: Yes (YEARS AGO) Lung Surgery: No Neurologic Surgery: No Orthopedic Surgery: No - Suicide/Smoking/Psychosocial Hx Smoking History: Never smoked Have you smoked in the past 12 months: No If you are a former smoker, when did you quit?: 1999 Information on smoking cessation initiated: No Hx Alcohol Use: No Drug/Substance Use Hx: No Substance Use Type: None Hx Substance Use Treatment: No Review of Systems - Review of Systems Constitutional: No: Chills, Diaphoresis, Fever HEENTM: No: Blurred Vision Respiratory: No: Cough, Orthopnea Cardiac (ROS): No: Chest Pain, Edema ABD/GI: No: Nausea, Abdominal cramping : Yes: Hematuria. No: Burning, Dysuria Musculoskeletal: Yes: Other All Other Systems: Reviewed and Negative *Physical Exam - Vital Signs Last Vital Signs Temp Pulse Resp BP Pulse Ox 97.8 F 77 16 127/60 100 07/24/18 11:52 07/24/18 11:52 07/24/18 11:52 07/24/18 11:52 07/24/18 11:52 - Physical Exam Comments: 07/24/18 13:12 awake alert lungs clear bilaterally heart rrr no mrg abd soft nt nd. ext wwp no edema. no calf tenderness. no cva tenderness. nuero alert oriented x 3. gait normal Moderate Sedation - Procedure Monitoring Vital Signs: Procedure Monitoring Vital Signs Temperature 97.8 F 07/24/18 11:52 Pulse Rate 77 07/24/18 11:52 Respiratory Rate 16 07/24/18 11:52 Blood Pressure 127/60 07/24/18 11:52 O2 Sat by Pulse Oximetry (%) 100 07/24/18 11:52 ED Treatment Course - RADIOLOGY Radiology Studies Ordered: Category Date Time Status SPIRAL- RENAL-STONE CT [CT] Stat CT Scan 07/24/18 12:56 Ordered Medical Decision Making - Medical Decision Making 07/24/18 13:12 72 yo male here with hematuria. differential renal colic, known renal cyst hemorrhage. uti pyelo plan ct spiral, labs ua urine cultures. *DC/Admit/Observation/Transfer - Referrals Referrals: Marcelino Vaughn MD [Primary Care Provider] - - Patient Instructions - Post Discharge Activity
[2018-07-24 13:17] LABS: BASO % 1.1 % (0-2.0); EOS % 2.1 % (0-4.5); HEMOGLOBIN 12.9 GM/dL (11.7-16.9); LYMPH % 27.1 % (8-40); MCH 30.4 pg (25.7-33.7); MCHC 35.8 g/dl (32.0-35.9); MEAN CELL VOLUME 84.9 fl (80-96); MEAN PLT VOLUME 8.2 fl (7.5-11.1); MONO % 7.7 % (3.8-10.2); PLATELET COUNT 163 K/MM3 (134-434); RBC 4.24 M/mm3 (4.00-5.60); RDW 14.3 % (11.9-15.9); WHITE BLOOD COUNT 5.2 K/mm3 (4.0-10.0)
[2018-07-24 13:18] LABS: URINE APPEARANCE CLEAR; URINE BILIRUBIN NEGATIVE (<2.0 mg/dL); URINE COLOR STRAW; URINE GLUCOSE (UA) 3+ (NEGATIVE); URINE KETONE NEGATIVE (NEGATIVE); URINE LEUK ESTERASE NEGATIVE (NEGATIVE); URINE NITRITE NEGATIVE (NEGATIVE); URINE PROTEIN NEGATIVE (NEGATIVE); URINE UROBILINOGEN NEGATIVE mg/dL (0.2-1.0)
[2018-07-24 13:33] LABS: ALBUMIN 3.4 g/dl (3.4-5.0); ALK PHOS 114 U/L (45-117); ANION GAP 8 MMOL/L (8-16); BILIRUBIN,TOTAL 0.5 mg/dL (0.2-1); BLOOD UREA NITROGEN 11 mg/dL (7-18); CALCIUM 8.8 mg/dL (8.5-10.1); CHLORIDE 100 mmol/L (98-107); CO2 25 mmol/L (21-32); CREATININE 0.7 mg/dL (0.55-1.3); GLUCOSE,RANDOM 254 mg/dL (74-106); POTASSIUM 4.1 mmol/L (3.5-5.1); SGOT/AST 22 U/L (15-37); SGPT/ALT 27 U/L (13-61); SODIUM 134 mmol/L (136-145); TOT PROT 7.5 g/dl (6.4-8.2)
== END 2018-07-24 16:30 | disposition home or self-care (01) ==
LOC: JER 11:28
DX: R31.9 Hematuria, unspecified (principal); N40.0 Benign prostatic hyperplasia without lower urinary tract symptoms; Z85.46 Personal history of malignant neoplasm of prostate; E11.9 Type 2 diabetes mellitus without complications; Z87.891 Personal history of nicotine dependence
CPT/HCPCS: 36415; 74176; 80053; 81003; 81015; 85025; 87086; 99282-25

== ENCOUNTER 2018-09-03 11:33 | Day surgery (SDC) | payer MEDICARE, OTHER ==
[2018-08-31 16:30] VITALS: BMI 27.1
[2018-09-03] MEDS ORDERED: KETOROLAC TROMETHAMINE 30 MG/1 ML VIAL ONE (13:47)
[2018-09-03] MEDS ORDERED: MIDAZOLAM HCL 2 MG/2 ML SINGLE DOSE VIAL ONE (13:47)
--- NOTE | 2018-09-03 14:17 | OP ---
Operative Note - Note: Operative Date: 09/03/18 Pre-Operative Diagnosis: Right renal stone Operation: Right ESWL Findings: 6 mm lower pole Right kidney stone Post-Operative Diagnosis: Same as Pre-op Surgeon: Dwight Garcia Anesthesia: Fractional Estimated Blood Loss (mls): 0
[2018-09-03 15:29] VITALS: BP 121/65; PULSE 69; TEMP 97.6
--- NOTE | 2018-09-03 19:40 | OP ---
DATE OF OPERATION: 09/03/2018 PREOPERATIVE DIAGNOSIS: Right renal stone. POSTOPERATIVE DIAGNOSIS: Right renal stone. PROCEDURE: Right extracorporeal shock wave lithotripsy. ATTENDING: Perry Toribio MD ANESTHESIA: Fractional. DESCRIPTION OF OPERATION: The patient was brought in the operating room, placed in supine position on the operating room table. Ultrasonography and fluoroscopy were performed. A 6-mm right renal stone was identified. Anesthesia and preoperative antibiotics were then administered. Shock wave lithotripsy was then performed. No complications were noted. The patient's disposition was to recovery room. PERRY TORIBIO M.D. [id number]
== END 2018-09-03 15:30 | disposition home or self-care (01) ==
LOC: JASU-SURG 11:33
PROVIDERS: ATTEND Urology
PROC: 0TF3XZZ Fragmentation in Right Kidney Pelvis, External Approach (ICD-10-PCS; principal; 2018-09-03 13:15)
DX: N20.0 Calculus of kidney (principal); E11.9 Type 2 diabetes mellitus without complications; Z79.84 Long term (current) use of oral hypoglycemic drugs
CPT/HCPCS: 82962

== ENCOUNTER 2019-05-03 02:30 | Emergency (ER) | payer MEDICARE, OTHER ==
[2019-05-03 02:42] VITALS: TEMP 98.3; BMI 23.5
[2019-05-03 03:18] LABS: BASO % 0.7 % (0-2.0); EOS % 1.3 % (0-4.5); HEMOGLOBIN 13.4 GM/dL (11.7-16.9); LYMPH % 27.7 % (8-40); MCH 29.7 pg (25.7-33.7); MCHC 34.4 g/dl (32.0-35.9); MEAN CELL VOLUME 86.3 fl (80-96); MEAN PLT VOLUME 8.6 fl (7.5-11.1); MONO % 7.2 % (3.8-10.2); NEUT % 63.1 % (42.8-82.8); PLATELET COUNT 143 K/MM3 (134-434); RBC 4.52 M/mm3 (4.00-5.60); WHITE BLOOD COUNT 7.1 K/mm3 (4.0-10.0)
[2019-05-03 03:22] LABS: EPI CELLS 0.1 /HPF (0-5/HPF); HYALINE CASTS 11 /lpf (0-8); PH,URINE 6.5 (5.0-8.0); URINE APPEARANCE CLEAR; URINE BACTERIA 88.1 /hpf (NEGATIVE); URINE BILIRUBIN NEGATIVE (NEGATIVE); URINE COLOR YELLOW; URINE GLUCOSE (UA) 3+ (NEGATIVE); URINE KETONE NEGATIVE (NEGATIVE); URINE LEUK ESTERASE 1+ (NEGATIVE); URINE NITRITE NEGATIVE (NEGATIVE); URINE PROTEIN 1+ (NEGATIVE); URINE RBC 111 /hpf (0-4); URINE UROBILINOGEN 0.2 mg/dL (0.2-1.0); URINE WBC 94 /hpf (0-5)
[2019-05-03 03:45] LABS: BILIRUBIN,TOTAL 0.9 mg/dL (0.2-1); BLOOD UREA NITROGEN 11.2 mg/dL (7-18); CALCIUM 9.5 mg/dL (8.5-10.1); CREATININE 0.9 mg/dL (0.55-1.3); POTASSIUM 3.7 mmol/L (3.5-5.1)
--- NOTE | 2019-05-03 03:47 | PDOC ---
History of Present Illness - General Chief Complaint: Back Pain Stated Complaint: BACK PAIN, URINARY PROBLEM Time Seen by Provider: 05/03/19 02:43 History Source: Patient, Family Exam Limitations: Language Barrier - History of Present Illness Initial Comments: 05/03/19 04:04 73yo M with PMH of Prostate Ca s/p RT ~9y ago, Kidney Stones, DM, BPH presenting to ED with complaints of urinary retention and penile pain. Pt states that he was having pain on the R side of his lower back which then moved to the urethra. He states that he last urinated around 7am yesterday and has been unable to urinate since despite the urge to. Endorses nonradiating pain in the penis and abdominal distention. Denies back pain, numbness, tingling, abdominal pain, n/v/d, fevers, chills, flank pain, back pain, bowel incontinence , injury, chest pain, sob, weakness. PMD: Johana Uro: Radha PMH: see hpi PSH: see hpi Meds: see med rec Allergies: nkda Past History - Past Medical History Allergies/Adverse Reactions: Allergies Allergy/AdvReac Type Severity Reaction Status Date / Time peach Allergy Intermediate Swelling Verified 09/03/18 12:20 No Known Drug Allergies Allergy Verified 09/03/18 12:20 Home Medications: Ambulatory Orders metFORMIN HCL [Glucophage] 1,000 mg PO BID 05/14/13 Canagliflozin [Invokana] 300 mg PO DAILY 01/06/17 Dulaglutide [Trulicity] 1.5 mg SQ WEEKLY 06/23/18 Glipizide 5 mg PO TID 06/23/18 levoFLOXacin [Levaquin] 750 mg PO DAILY #5 tab 05/03/19 Anemia: No Asthma: No Cancer: Yes (PROSTATE) Cardiac Disorders: No CVA: No COPD: No CHF: No Dementia: No Diabetes: Yes GI Disorders: Yes Disorders: Yes (BPH, GENITAL POLYPS REMOVED) HTN: No Hypercholesterolemia: No Kidney Stones: Yes Liver Disease: No Seizures: No Thyroid Disease: No - Surgical History Abdominal Surgery: No Appendectomy: No Cardiac Surgery: No Cholecystectomy: Yes (YEARS AGO laser/radiation) Lung Surgery: No Neurologic Surgery: No Orthopedic Surgery: No - Psycho Social/Smoking Cessation Hx Smoking History: Unknown if ever smoked Have you smoked in the past 12 months: No If you are a former smoker, when did you quit?: 1999 Hx Alcohol Use: No Drug/Substance Use Hx: No Substance Use Type: None Hx Substance Use Treatment: No Review of Systems - Review of Systems Constitutional: No: Symptoms Reported HEENTM: No: Symptoms Reported Respiratory: No: Symptoms reported Cardiac (ROS): No: Symptoms Reported ABD/GI: Yes: See HPI : Yes: See HPI Musculoskeletal: No: Symptoms Reported, Joint Pain, Muscle Pain, Muscle Weakness Integumentary: No: Symptoms Reported Neurological: No: Headache, Numbness, Paresthesia, Tingling, Tremors, Weakness, Unsteady Gait, Ataxia, Dizziness *Physical Exam - Vital Signs Last Vital Signs Temp Pulse Resp BP Pulse Ox 98.3 F 109 H 18 168/88 100 05/03/19 02:36 05/03/19 02:36 05/03/19 02:36 05/03/19 02:36 05/03/19 02:36 - Physical Exam General Appearance: Yes: Nourished, Appropriately Dressed. No: Apparent Distress HEENT: positive: EOMI, BIPIN, Normal ENT Inspection Neck: positive: Trachea midline, Supple Respiratory/Chest: positive: Lungs Clear, Normal Breath Sounds Cardiovascular: positive: Regular Rhythm, S1, S2, Tachycardia. negative: Edema , JVD, Murmur Gastrointestinal/Abdominal: positive: Normal Bowel Sounds, Soft, Distended. negative: Tender, Guarding, Rebound, Tenderness Male Genitalia: positive: normal genitalia. negative: discharge, testicular tenderness, hematuria Musculoskeletal: negative: CVA Tenderness, Muscle Spasm, Vertebral Tenderness Extremity: positive: Normal Capillary Refill. negative: Pedal Edema, Swelling Integumentary: positive: Normal Color, Dry, Warm Neurologic: positive: felt hat steamer II-XII NML intact, Fully Oriented, Alert, Normal Mood/ Affect, Normal Response, Motor Strength 5/5 ED Treatment Course - LABORATORY CBC & Chemistry Diagram: 05/03/19 03:06 05/03/19 03:06 - ADDITIONAL ORDERS Additional order review: Laboratory Results 05/03/19 03:06 Urine Color Yellow Urine Appearance Clear Urine pH 6.5 D Ur Specific [place] 1.013 Urine Protein 1+ H Urine Glucose (UA) 3+ H Urine Ketones Negative Urine Blood 2+ H Urine Nitrite Negative Urine Bilirubin Negative Urine Urobilinogen 0.2 Ur Leukocyte Esterase 1+ H Urine WBC (Auto) 94 Urine RBC (Auto) 111 Urine Casts (Auto) 11 U Epithel Cells (Auto) 0.1 Urine Bacteria (Auto) 88.1 05/03/19 03:06 RBC 4.52 MCV 86.3 MCHC 34.4 RDW 14.0 MPV 8.6 Neutrophils % 63.1 Lymphocytes % 27.7 Monocytes % 7.2 Eosinophils % 1.3 Basophils % 0.7 Medical Decision Making - Medical Decision Making 05/03/19 04:12 73yo M with PMH of Prostate Ca s/p RT ~9y ago, Kidney Stones, DM, BPH presenting to ED with complaints of urinary retention and penile pain. Pt states that he was having pain on the R side of his lower back which then moved to the urethra. He states that he last urinated around 7am yesterday and has been unable to urinate since despite the urge to. Endorses nonradiating pain in the penis and abdominal distention. Denies back pain, numbness, tingling, abdominal pain, n/v/d, fevers, chills, flank pain, back pain, bowel incontinence , injury, chest pain, sob, weakness. Vitals: tachycardia pt appears uncomfortable, pacing room. abdomen distended, no flank pain, no vertebral tenderness. ddx includes but not limited to urinary retention (stricture v. occlusion v. bph ), malignancy, cord compression. low suspicion for cord compression given sudden onset, no weakness, numbness, tingling, back pain (although it is documented as back pain, pt has pain in the genitals). 16F emanuel placed, drained >1L yellow urine, no gross blood. brown/black solid substance passed through. pt feeing better. no other complaints at this time. will check urine for infection and obtain basic labs. labs wnl. ua positive for infection. will give Levaquin here and rx. will keep emanuel in place for now and dc with leg bag. will ask pt to follow up with urologist. given strict return precautions. pt agrees to plan. Discharge - Discharge Information Problems reviewed: Yes Clinical Impression/Diagnosis: Urinary retention Condition: Improved Disposition: HOME - Additional Discharge Information Prescriptions: levoFLOXacin [Levaquin] 750 mg PO DAILY #5 tab - Follow up/Referral Referrals: Marcelino Vaughn MD [Primary Care Provider] - Dwight Garcia MD [Staff Physician] - - Patient Discharge Instructions Patient Printed Discharge Instructions: How to Care for Your Emanuel Catheter -- Male Additional Instructions: You were seen in the emergency room today for urinary retention. A emanuel was placed. Please make an appointment with Dr. Garcia tomorrow or sometime early next week regarding this ED visit. You have a urinary tract infection. An antibiotic was sent to your pharmacy, please take as directed. Come back to the emergency room if the emanuel is not draining, there is leakage around the emanuel, you have fever, worsening pain, have numbness/tingling in your legs, the urine is bloody or if any new concerning symptom develops. Thank you Lo vieron hoy en la ludy de emergencias por retencin urinaria. Se coloc un emanuel. Timo waldemar valeriy con el Dr. Radha mattson o en algn momento a principios de la prxima semana con respecto a esta visita al [place]. Tiene waldemar infeccin del tracto urinario. Se envi un antibitico a jimenez farmacia, tmelo segn las indicaciones. Regrese a la ludy de emergencias si el emanuel no se est drenando, hay fugas alrededor del emanuel, tiene fiebre, empeora el dolor, tiene entumecimiento / hormigueo en las piernas, la orina est ensangrentada o si se desarrolla algn sntoma nuevo. Tamela - Post Discharge Activity
[2019-05-03 04:01] VITALS: BP 152/76; PULSE 52
--- NOTE | 2019-05-03 04:29 | PDOC ---
Attending Attestation - Resident Resident Name: Sushma Escudero - ED Attending Attestation I have performed the following: I have examined & evaluated the patient, The case was reviewed & discussed with the resident, I agree w/resident's findings & plan, Exceptions are as noted - HPI HPI: 05/03/19 04:27 73M pmh DM, BPH, prostate CA s/p radiation here with urinary retention for about a day a/w R sided LBP. No fevers/chill, n/v, d/c - Physicial Exam PE: 05/03/19 04:28 Agree with exam as documented - Medical Decision Making 05/03/19 04:28 Urinary retention emanuel catheter placed with decompression, clear yellow urine, no gross blood or clots f/u labs, UA +uti dc with abx, leg bag, follow <week
== END 2019-05-03 04:19 | disposition home or self-care (01) ==
LOC: JER 02:30
PROC: 0T9B70Z Drainage of Bladder with Drainage Device, Via Natural or Artificial Opening (ICD-10-PCS; principal; 2019-05-03)
DX: N40.1 Benign prostatic hyperplasia with lower urinary tract symptoms (principal); R33.8 Other retention of urine; N39.0 Urinary tract infection, site not specified; E11.9 Type 2 diabetes mellitus without complications; Z79.4 Long term (current) use of insulin; Z85.46 Personal history of malignant neoplasm of prostate; Z87.442 Personal history of urinary calculi; B95.2 Enterococcus as the cause of diseases classified elsewhere; Z91.018 Allergy to other foods
CPT/HCPCS: 36415; 51702; 80053; 81003; 85025; 87086; 87186; 99283-25

== ENCOUNTER 2021-07-02 16:22 | Inpatient (IN) | payer MEDICARE, OTHER ==
[2021-07-02] MEDS ORDERED: ONDANSETRON 4 MG/2 ML VIAL IVPUSH ONE (17:43)
[2021-07-02] MEDS ORDERED: ACETAMINOPHEN 1000 MG/100 ML VIAL IVPB ONE (17:43)
[2021-07-02] MEDS ORDERED: ONDANSETRON 4 MG/2 ML VIAL ONE (18:02)
[2021-07-02] MEDS ORDERED: ACETAMINOPHEN INJECTION 100 ML IVPB ONE (18:02)
[2021-07-02 18:24] LABS: BASO % 0.6 % (0-2.0); EOS % 0.2 % (0-4.5); HEMATOCRIT 18.4 % (35.4-49); LYMPH % 24.4 % (8-40); MCH 26.4 pg (25.7-33.7); MCHC 32.7 g/dl (32.0-35.9); MEAN CELL VOLUME 80.8 fl (80-96); MEAN PLT VOLUME 7.5 fl (7.5-11.1); MONO % 6.7 % (3.8-10.2); NEUT % 68.1 % (42.8-82.8); PLATELET COUNT 184 10^3/uL (134-434); RBC 2.27 M/mm3 (4.00-5.60); RDW 16.3 % (11.9-15.9); WHITE BLOOD COUNT 5.8 K/mm3 (4.0-10.0)
[2021-07-02 18:32] LABS: INR 1.17 (0.83-1.09); PROTHROMBIN TIME (PATIENT) 13.7 SEC (9.7-13.0)
[2021-07-02 18:45] LABS: ALBUMIN 3.1 g/dl (3.4-5.0); ALK PHOS 82 U/L (45-117); ANION GAP 6 MMOL/L (8-16); BILIRUBIN,TOTAL 0.8 mg/dL (0.2-1); BLOOD UREA NITROGEN 16.7 mg/dL (7-18); CALCIUM 8.4 mg/dL (8.5-10.1); CHLORIDE 104 mmol/L (98-107); CO2 27 mmol/L (21-32); GLUCOSE,RANDOM 301 mg/dL (74-106); LIPASE 130 U/L (73-393); MAGNESIUM 2.1 mg/dL (1.8-2.4); SGOT/AST 31 U/L (15-37); SGPT/ALT 29 U/L (13-61); SODIUM 137 mmol/L (136-145)
[2021-07-03 04:12] VITALS: BMI 29.0
[2021-07-03] MEDS: INSULIN SLIDING SCALE (NOVOLOG) 1 VIAL SQ SCH ×4 (06:29→21:37)
[2021-07-03 08:31] LABS: BASO % 0.6 % (0-2.0); EOS % 1.8 % (0-4.5); HEMATOCRIT 25.7 % (35.4-49); HEMOGLOBIN 8.8 GM/dL (11.7-16.9); LYMPH % 24.4 % (8-40); MCHC 34.1 g/dl (32.0-35.9); MEAN CELL VOLUME 81.9 fl (80-96); MONO % 8.2 % (3.8-10.2); PLATELET COUNT 173 10^3/uL (134-434); RBC 3.14 M/mm3 (4.00-5.60); RDW 15.5 % (11.9-15.9); WHITE BLOOD COUNT 7.3 K/mm3 (4.0-10.0)
[2021-07-03] MEDS: PANTOPRAZOLE SODIUM 40 MG VIAL IVPUSH SCH ×2 (09:04→21:39)
[2021-07-03 09:07] LABS: CALCIUM 8.4 mg/dL (8.5-10.1)
[2021-07-03 09:08] LABS: ALBUMIN 3.1 g/dl (3.4-5.0); BLOOD UREA NITROGEN 14.4 mg/dL (7-18); MAGNESIUM 2.3 mg/dL (1.8-2.4)
[2021-07-03 09:11] LABS: CREATININE 0.8 mg/dL (0.55-1.3)
[2021-07-03 09:13] LABS: BILIRUBIN,TOTAL 1.8 mg/dL (0.2-1); TOT PROT 6.8 g/dl (6.4-8.2)
[2021-07-03] MEDS ORDERED: INSULIN (NOVOLOG) ASPART 100 UNITS/ML 10ML VIAL ONE ×2 (11:28→21:29)
[2021-07-03 15:35] LABS: HEMATOCRIT 24.4 % (35.4-49); HEMOGLOBIN 8.3 GM/dL (11.7-16.9); MEAN CELL VOLUME 82.5 fl (80-96); MEAN PLT VOLUME 8.1 fl (7.5-11.1); PLATELET COUNT 160 10^3/uL (134-434); RBC 2.95 M/mm3 (4.00-5.60); RDW 15.2 % (11.9-15.9); WHITE BLOOD COUNT 7.3 K/mm3 (4.0-10.0)
[2021-07-03] MEDS: SODIUM CHLORIDE 1,000 ML IV SCH (15:51)
[2021-07-04] MEDS: SODIUM CHLORIDE 1,000 ML IV SCH ×3 (05:42→19:49)
[2021-07-04] MEDS: INSULIN SLIDING SCALE (NOVOLOG) 1 VIAL SQ SCH ×4 (06:07→21:16)
[2021-07-04 08:23] LABS: BASO % 0.3 % (0-2.0); EOS % 2.5 % (0-4.5); HEMATOCRIT 23.8 % (35.4-49); HEMOGLOBIN 8.1 GM/dL (11.7-16.9); MCH 27.9 pg (25.7-33.7); MCHC 34.1 g/dl (32.0-35.9); MEAN CELL VOLUME 81.8 fl (80-96); MEAN PLT VOLUME 8.2 fl (7.5-11.1); MONO % 7.8 % (3.8-10.2); NEUT % 68.4 % (42.8-82.8); PLATELET COUNT 160 10^3/uL (134-434); RBC 2.91 M/mm3 (4.00-5.60); RDW 15.8 % (11.9-15.9); WHITE BLOOD COUNT 8.1 K/mm3 (4.0-10.0)
[2021-07-04 09:06] LABS: PH,URINE 5.5 (5.0-8.0); URINE APPEARANCE CLEAR; URINE BILIRUBIN NEGATIVE (NEGATIVE); URINE COLOR YELLOW; URINE GLUCOSE (UA) TRACE (NEGATIVE); URINE KETONE NEGATIVE (NEGATIVE); URINE LEUK ESTERASE NEGATIVE (NEGATIVE); URINE NITRITE NEGATIVE (NEGATIVE); URINE PROTEIN NEGATIVE (NEGATIVE); URINE UROBILINOGEN 0.2 mg/dL (0.2-1.0)
[2021-07-04] MEDS: PANTOPRAZOLE SODIUM 40 MG VIAL IVPUSH SCH ×2 (09:34→21:18)
[2021-07-04] MEDS ORDERED: INSULIN (NOVOLOG) ASPART 100 UNITS/ML 10ML VIAL ONE (21:07)
[2021-07-05] MEDS: INSULIN SLIDING SCALE (NOVOLOG) 1 VIAL SQ SCH ×2 (06:12→12:47)
[2021-07-05 08:52] LABS: HEMATOCRIT 23.4 % (35.4-49); HEMOGLOBIN 7.9 GM/dL (11.7-16.9); MCH 27.8 pg (25.7-33.7); MCHC 33.9 g/dl (32.0-35.9); MEAN PLT VOLUME 8.2 fl (7.5-11.1); PLATELET COUNT 149 10^3/uL (134-434); RBC 2.85 M/mm3 (4.00-5.60); RDW 16.3 % (11.9-15.9)
[2021-07-05 09:22] LABS: BLOOD UREA NITROGEN 7.4 mg/dL (7-18); CALCIUM 7.9 mg/dL (8.5-10.1)
[2021-07-05 09:23] LABS: ALBUMIN 2.8 g/dl (3.4-5.0)
[2021-07-05 09:26] LABS: CREATININE 0.7 mg/dL (0.55-1.3)
[2021-07-05 09:27] LABS: BILIRUBIN,TOTAL 1.3 mg/dL (0.2-1); TOT PROT 6.4 g/dl (6.4-8.2)
[2021-07-05] MEDS ORDERED: INSULIN (LEVEMIR) 100 UNITS/ML UNITS SQ SCH (10:00)
[2021-07-05] MEDS: PANTOPRAZOLE SODIUM 40 MG VIAL IVPUSH SCH (10:18)
[2021-07-05] MEDS ORDERED: FLUCONAZOLE 100 MG TABLET (UD) PO SCH (12:30)
[2021-07-05] MEDS: SODIUM CHLORIDE 1,000 ML IV SCH (12:54)
[2021-07-05 13:28] VITALS: BP 143/70; PULSE 96; TEMP 99
== END 2021-07-05 16:52 | disposition home or self-care (01) | DRG 378 ==
LOC: JER 16:22 → JERBED 18:34 → J7W 07-03 03:13
PROC: 0DB78ZX Excision of Stomach, Pylorus, Via Natural or Artificial Opening Endoscopic, Diagnostic (ICD-10-PCS; 2021-07-05)
PROC: 0DB68ZX Excision of Stomach, Via Natural or Artificial Opening Endoscopic, Diagnostic (ICD-10-PCS; 2021-07-05)
PROC: 0DB28ZX Excision of Middle Esophagus, Via Natural or Artificial Opening Endoscopic, Diagnostic (ICD-10-PCS; 2021-07-05)
PROC: 0DB48ZX Excision of Esophagogastric Junction, Via Natural or Artificial Opening Endoscopic, Diagnostic (ICD-10-PCS; principal; 2021-07-05 12:30)
DX: K29.61 Other gastritis with bleeding (principal); D62 Acute posthemorrhagic anemia; B37.81 Candidal esophagitis; B96.81 Helicobacter pylori [H. pylori] as the cause of diseases classified elsewhere; E11.9 Type 2 diabetes mellitus without complications; K59.00 Constipation, unspecified; Z79.84 Long term (current) use of oral hypoglycemic drugs; Z79.4 Long term (current) use of insulin; M25.562 Pain in left knee; M25.462 Effusion, left knee; Z85.46 Personal history of malignant neoplasm of prostate
CPT/HCPCS: 36415; 36430; 73560-TC-LT-FY; 74177-TC; 80053; 81003; 82272; 82728; 82962; 83036; 83540; 83550; 83690; 83735; 84100; 84484; 85025; 85027; 85610; 86850; 86900; 86901; 86922; 88305-TC; 93005; 93010; 93970-TC; 99285-25; C9803; J0131; P9058; Q9967; U0003; U0005

== ENCOUNTER 2021-08-30 19:27 | Observation (INO) | payer MEDICARE, OTHER ==
[2021-08-30 20:54] LABS: BASO % 1.5 % (0-2.0); HEMATOCRIT 23.9 % (35.4-49); LYMPH % 26.6 % (8-40); MCH 20.5 pg (25.7-33.7); MCHC 29.2 g/dl (32.0-35.9); MEAN CELL VOLUME 70.3 fl (80-96); MONO % 8.9 % (3.8-10.2); PLATELET COUNT 157 10^3/uL (134-434); RDW 21.6 % (11.9-15.9); WHITE BLOOD COUNT 4.6 K/mm3 (4.0-10.0)
[2021-08-30 21:04] LABS: INR 1.15 (0.83-1.09); PROTHROMBIN TIME (PATIENT) 13.2 SEC (9.7-13.0)
[2021-08-30 21:07] LABS: ACTIVATED PTT 29.4 SECONDS (25.2-36.5)
[2021-08-30 21:15] LABS: CHLORIDE 102 mmol/L (98-107); SODIUM 136 mmol/L (136-145)
[2021-08-30 21:18] LABS: ALBUMIN 3.5 g/dl (3.4-5.0); ANION GAP 6 MMOL/L (8-16); CO2 28 mmol/L (21-32); GLUCOSE,RANDOM 369 mg/dL (74-106)
[2021-08-30 21:21] LABS: CREATININE 0.9 mg/dL (0.55-1.3); SGOT/AST 31 U/L (15-37); SGPT/ALT 28 U/L (13-61)
[2021-08-30 21:23] LABS: BILIRUBIN,TOTAL 0.4 mg/dL (0.2-1); TOT PROT 7.6 g/dl (6.4-8.2)
[2021-08-30 21:24] LABS: ALK PHOS 108 U/L (45-117)
[2021-08-30] MEDS ORDERED: ONDANSETRON 4 MG/2 ML VIAL IVPUSH PRN (22:34)
[2021-08-30] MEDS ORDERED: ACETAMINOPHEN 325 MG TABLET (FP) PO PRN (22:34)
[2021-08-30] MEDS ORDERED: POLYETHYLENE GLYCOL (HEALTHYLAX) 3350 17 GM PACKET PO PRN (22:34)
[2021-08-30] MEDS ORDERED: PANTOPRAZOLE 40 MG TABLET PO ONE (22:40)
[2021-08-30 23:13] LABS: ANISOCYTOSIS 3+; MACROCYTOSIS 0; PLATELET ESTIMATE DECREASED; TEAR DROP CELLS 1+
[2021-08-30] MEDS ORDERED: DOCUSATE SODIUM 100 MG CAPSULE (FP) PO PRN (23:13)
[2021-08-30] MEDS ORDERED: PANTOPRAZOLE SODIUM 40 MG VIAL IVPUSH ONE (23:13)
[2021-08-30] MEDS ORDERED: PANTOPRAZOLE SODIUM 40 MG VIAL ONE (23:30)
[2021-08-31] MEDS: DEXTROSE 5%-NORMAL SALINE 1,000 ML IV SCH (04:49)
[2021-08-31] MEDS: INSULIN SLIDING SCALE (NOVOLOG) 1 VIAL SQ SCH ×4 (05:59→21:16)
[2021-08-31 07:55] VITALS: BMI 27.8
[2021-08-31] MEDS: LOSARTAN POTASSIUM 25 MG TABLET PO SCH (12:22)
[2021-08-31] MEDS: FERROUS SO4 325 MG TABLET (FP) PO SCH ×2 (12:22→21:03)
[2021-08-31] MEDS: PANTOPRAZOLE 40 MG TABLET PO SCH (12:22)
[2021-08-31 12:45] LABS: BASO % 1.2 % (0-2.0); LYMPH % 34.4 % (8-40); MCH 21.6 pg (25.7-33.7); MCHC 29.6 g/dl (32.0-35.9); MEAN CELL VOLUME 73.2 fl (80-96); MEAN PLT VOLUME 7.8 fl (7.5-11.1); MONO % 8.2 % (3.8-10.2); NEUT % 54.2 % (42.8-82.8); PLATELET COUNT 149 10^3/uL (134-434); RBC 3.69 M/mm3 (4.00-5.60); RDW 22.3 % (11.9-15.9); WHITE BLOOD COUNT 4.5 K/mm3 (4.0-10.0)
[2021-08-31 13:10] LABS: CALCIUM 8.8 mg/dL (8.5-10.1)
[2021-08-31 13:11] LABS: BLOOD UREA NITROGEN 7.5 mg/dL (7-18)
[2021-08-31 13:16] LABS: CREATININE 0.7 mg/dL (0.55-1.3)
[2021-08-31] MEDS ORDERED: FERRIC CARBOXYMALTOSE 750 MG in SODIUM CHLORIDE 250 ML IVPB ONE (22:44)
[2021-09-01] MEDS: DEXTROSE 5%-NORMAL SALINE 1,000 ML IV SCH ×2 (05:53→20:54)
[2021-09-01] MEDS: INSULIN SLIDING SCALE (NOVOLOG) 1 VIAL SQ SCH ×4 (06:01→21:35)
[2021-09-01 09:45] LABS: BASO % 0.8 % (0-2.0); EOS % 2.6 % (0-4.5); HEMATOCRIT 26.2 % (35.4-49); INR 1.2 (0.83-1.09); LYMPH % 19.5 % (8-40); MCH 22.2 pg (25.7-33.7); MCHC 30.5 g/dl (32.0-35.9); MEAN CELL VOLUME 72.6 fl (80-96); MEAN PLT VOLUME 7.9 fl (7.5-11.1); MONO % 8.2 % (3.8-10.2); NEUT % 68.9 % (42.8-82.8); PLATELET COUNT 145 10^3/uL (134-434); PROTHROMBIN TIME (PATIENT) 13.8 SEC (9.7-13.0); RBC 3.62 M/mm3 (4.00-5.60); RDW 22.9 % (11.9-15.9); WHITE BLOOD COUNT 6.2 K/mm3 (4.0-10.0)
[2021-09-01 10:00] LABS: CALCIUM 8.6 mg/dL (8.5-10.1)
[2021-09-01 10:01] LABS: ALBUMIN 3.2 g/dl (3.4-5.0); BLOOD UREA NITROGEN 5.7 mg/dL (7-18); MAGNESIUM 1.8 mg/dL (1.8-2.4)
[2021-09-01 10:04] LABS: CREATININE 0.7 mg/dL (0.55-1.3)
[2021-09-01 10:05] LABS: BILIRUBIN,TOTAL 0.7 mg/dL (0.2-1); TOT PROT 6.8 g/dl (6.4-8.2)
[2021-09-01] MEDS: PANTOPRAZOLE 40 MG TABLET PO SCH (10:34)
[2021-09-01] MEDS: LOSARTAN POTASSIUM 25 MG TABLET PO SCH (10:34)
[2021-09-01 18:32] LABS: URINE APPEARANCE CLEAR; URINE BILIRUBIN NEGATIVE (NEGATIVE); URINE COLOR YELLOW; URINE GLUCOSE (UA) 1+ (NEGATIVE); URINE KETONE NEGATIVE (NEGATIVE); URINE LEUK ESTERASE NEGATIVE (NEGATIVE); URINE NITRITE NEGATIVE (NEGATIVE); URINE PROTEIN NEGATIVE (NEGATIVE); URINE UROBILINOGEN 0.2 mg/dL (0.2-1.0)
[2021-09-01 23:22] VITALS: BP 146/80; PULSE 89; TEMP 98.1
== END 2021-09-01 23:52 | disposition home or self-care (01) ==
LOC: JER 19:27 → JERBED 21:20 → J5S 08-31 04:09
PROVIDERS: ADMIT Internal Medicine; ATTEND Family Medicine
PROC: 3E033GC Introduction of Other Therapeutic Substance into Peripheral Vein, Percutaneous Approach (ICD-10-PCS; principal; 2021-08-30)
PROC: 3E013VG Introduction of Insulin into Subcutaneous Tissue, Percutaneous Approach (ICD-10-PCS; 2021-08-30)
PROC: 30233N1 Transfusion of Nonautologous Red Blood Cells into Peripheral Vein, Percutaneous Approach (ICD-10-PCS; 2021-08-30)
DX: D53.9 Nutritional anemia, unspecified (principal); D64.89 Other specified anemias; I10 Essential (primary) hypertension; E11.9 Type 2 diabetes mellitus without complications; Z85.46 Personal history of malignant neoplasm of prostate; K92.2 Gastrointestinal hemorrhage, unspecified; Z91.018 Allergy to other foods
CPT/HCPCS: 36415; 36430; 71045-TC-FY; 80048; 80053; 81003; 82272; 82550; 82728; 82962; 83540; 83550; 83735; 84484; 85025; 85610; 85730; 86850; 86900; 86901; 86922; 93005; 93010; 96365; 96367; 96372; 96375; 99285-25; C9803; G0378; J1439; P9058; U0003; U0005

== ENCOUNTER 2022-10-02 15:12 | Emergency (ER) | payer OTHER ==
[2022-10-02 15:40] VITALS: BP 151/84; PULSE 81; RESP 20; TEMP 98.2; BMI 28.5
[2022-10-02 16:30] LABS: HEMATOCRIT 36.6 % (35.4-49); HEMOGLOBIN 12.7 G/dL (11.7-16.9); MCH 32.1 pg (25.7-33.7); MCHC 34.7 g/dl (32.0-35.9); MEAN CELL VOLUME 92.4 fl (80-96); MEAN PLT VOLUME 8.4 fl (7.5-11.1); PLATELET COUNT 114.5 10^3/uL (134-434); RBC 3.96 10^6/uL (4.00-5.60); RDW 13.5 % (11.9-15.9); WHITE BLOOD COUNT 5.7 10^3/uL (4.0-10.8)
== END 2022-10-02 17:04 | disposition home or self-care (01) ==
LOC: FER 15:12
DX: K62.5 Hemorrhage of anus and rectum (principal)
CPT/HCPCS: 36415; 82272; 85027; 99283-25

== ENCOUNTER 2023-05-18 04:14 | Day surgery (SDC) | payer OTHER ==
[2023-05-17 09:24] VITALS: BMI 27.8
[2023-05-18 08:50] VITALS: TEMP 98
[2023-05-18 09:25] VITALS: BP 114/45; PULSE 75; RESP 20
== END 2023-05-18 09:56 | disposition home or self-care (01) ==
LOC: JASU-ENDO 04:14
PROVIDERS: ATTEND Internal Medicine Gastroenterology
PROC: 0DBK8ZX Excision of Ascending Colon, Via Natural or Artificial Opening Endoscopic, Diagnostic (ICD-10-PCS; principal; 2023-05-18 08:00)
DX: D12.2 Benign neoplasm of ascending colon (principal); K62.7 Radiation proctitis; K64.8 Other hemorrhoids; K57.30 Diverticulosis of large intestine without perforation or abscess without bleeding; E11.9 Type 2 diabetes mellitus without complications; Z79.4 Long term (current) use of insulin; Y84.2 Radiological procedure and radiotherapy as the cause of abnormal reaction of the patient, or of later complication, without mention of misadventure at the time of the procedure
CPT/HCPCS: 82962; 88305-TC

== ENCOUNTER 2023-08-24 04:13 | Day surgery (SDC) | payer OTHER ==
[2023-08-17 09:34] VITALS: BMI 26.6
[2023-08-24] MEDS ORDERED: LIDOCAINE VISCOUS 2% ORAL/TOP 15 ML UNIT-DOSE CUP ONE (09:50)
[2023-08-24 10:15] VITALS: TEMP 96.6
[2023-08-24 10:44] VITALS: BP 128/65; PULSE 74; RESP 20
== END 2023-08-24 10:48 | disposition home or self-care (01) ==
LOC: JASU-ENDO 04:13
PROVIDERS: ATTEND Internal Medicine Gastroenterology
PROC: 0DB68ZX Excision of Stomach, Via Natural or Artificial Opening Endoscopic, Diagnostic (ICD-10-PCS; principal; 2023-08-24 08:30)
DX: I85.00 Esophageal varices without bleeding (principal); K29.60 Other gastritis without bleeding; I10 Essential (primary) hypertension; E11.9 Type 2 diabetes mellitus without complications; Z79.4 Long term (current) use of insulin; Z79.84 Long term (current) use of oral hypoglycemic drugs
CPT/HCPCS: 82962; 88305-TC; 88313-TC; 88342-TC

== ENCOUNTER → 2024-02-21 | Day surgery (SDC) | payer OTHER | END | disposition home or self-care (01) | LOC: JMAMMO-SUR 12:51 | PROVIDERS: ATTEND Internal Medicine Hematology & Oncology | PROC: 0H9U3ZX Drainage of Left Breast, Percutaneous Approach, Diagnostic (ICD-10-PCS; principal; 2024-02-21) | DX: N62 Hypertrophy of breast (principal) | CPT/HCPCS: 19083; 77065-TC; 87899; 88305-TC; A4648 ==